=== PATIENT | female | born 1970 | race Caucasian/White ===

== ENCOUNTER 2020-09-26 12:45 | Emergency (ER) | payer SELFPAY ==
[2020-09-26] MEDS ORDERED: Lorazepam 2 MG/ML VIAL ONE (13:04)
[2020-09-26] MEDS ORDERED: Meclizine HCl 25 MG TAB ONE (13:05)
[2020-09-26] MEDS ORDERED: Dexamethasone 10 MG/ML VIAL ONE (13:06)
[2020-09-26] MEDS ORDERED: Ondansetron PF 4 MG/2 ML Vial ONE (14:40)
== END 2020-09-26 15:05 | disposition home or self-care (01) ==
LOC: ERS 12:45
DX: R42 Dizziness and giddiness (principal); G43.909 Migraine, unspecified, not intractable, without status migrainosus; R73.03 Prediabetes; Z79.899 Other long term (current) drug therapy
CPT/HCPCS: 71045; 93005; 96374; 96375; J1100; J2060; J2405